=== PATIENT | male | born 1930 | race Caucasian/White ===

== ENCOUNTER 2016-12-22 05:41 | Inpatient (IN) | payer OTHER ==
[2016-12-21 10:57] LABS: % IMMATURE GRANULYOCYTES 0.6 % (0.0-1.1); ABSOLUTE IMMATURE GRANULOCYTES 0.04 10^3/uL (0.00-0.10); ADD DIFF? NO; ADD MORPH? NO; ADD SCAN? NO; ATYPICAL LYMPHOCYTE FLAG 0 (0-99); FRAGMENT RBC FLAG 0 (0-99); HEMOGLOBIN 13.5 g/dL (13.7-17.5); LEFT SHIFT FLG 0 (0-99); LIPEMIA HEMOLYSIS FLAG 80 (0-99); MEAN CELL HEMOGLOBIN 31.6 pg (27.9-34.1); MEAN CELL HEMOGLOBIN CONCENTR. 32.9 g/dL (32.4-36.7); MEAN PLATELET VOLUME 10.5 fL (8.7-11.7); PLATELET CLUMPS FLAG 10 (0-99); PLATELET COUNT 215 10^3/uL (150-400); RED BLOOD CELL COUNT 4.27 10^6/uL (4.40-6.38); RED CELL DISTRIBUTION WIDTH 13.7 % (11.5-15.2)
--- NOTE | 2016-12-21 13:55 | CPEKG ---
Heart Rate: 67 RR Interval: 896 P-R Interval: 232 QRSD Interval: 138 QT Interval: 456 QTC Interval: 482 P Royston: 93 QRS Royston: 12 T Wave Royston: 22 EKG Severity - ABNORMAL ECG - EKG Impression: SINUS RHYTHM EKG Impression: FIRST DEGREE AV BLOCK EKG Impression: RIGHT BUNDLE BRANCH BLOCK Electronically Signed By: Jose C Ochoa 21-Dec-2016 14:21:32
--- NOTE | 2016-12-21 14:36 | GHP ---
[f rep st] PREOP HISTORY AND PHYSICAL DATE OF ADMISSION: 12/22/2016 He will be an a.m. admission for surgery on Thursday, December 22, 2016. 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 HISTORY OF PRESENT ILLNESS: The patient is an 86-year-old man admitted for revision surgery on his left total hip arthroplasty. In 2000, he underwent a left total hip arthroplasty by Dr. Mateo swift at [facility]. He did fine up until about 6 weeks ago. He sustained the first dislo cation sitting on the toilet. This was reduced in the emergency room at [facility]. H emeka dislocated again on November 29, 2016, sitting on a toilet seat. From his description and from e description of how it was reduced in the emergency room, I suspect that this is a posterior disloc ation. He has had a cemented endoprosthesis of the right hip which was done at the [facility] in [place] fo r a femoral neck fracture. He was able to walk without a walker prior to his dislocations. He is admitted at this time for rev ision of the left total hip for recurrent dislocation. PAST MEDICAL HISTORY: He is treated for hypertension, stomach acid, and elevated cholesterol. No h istory of heart disease. His preoperative EKG showed 1st degree heart block and a right bundle bran ch block. No history of DVT, hepatitis, or sleep apnea. CURRENT MEDICATIONS: Ranitidine 150 mg per day, atorvastatin 40 mg per day, metoprolol for blood pr essure, terazosin for urination. DRUG ALLERGIES: Penicillin causes a rash. Metal allergy: None. Latex allergy: None. SOCIAL HISTORY: The patient is single. He does not smoke cigarettes. He occasionally drinks alcoh ol. His primary care doctor is through the [facility]. FAMILY HISTORY: Negative. PHYSICAL EXAMINATION: GENERAL: He is an alert, elderly gentleman. EYES: The conjunctivae and scl erae are clear. Pupils are round and reactive. He has had bilateral cataract surgery with lens imp lants. MOUTH: Good oral hygiene. No loose teeth. CHEST: Clear. HEART: Regular rhythm. No mur murs. EXTREMITIES: He has a healed posterior incision. He is using a Velcro knee splint on the le ft knee to prevent hip flexion. IMPRESSION ON ADMISSION: 1. 16 years status post left total hip arthroplasty with recent onset of dislocation. 2. 7 years status post cemented endoprosthesis of the right hip. 3. Treatment for elevated cholesterol. 4. Treatment for hypertension. 5. Treatment for stomach acid problems. PLAN: He will undergo revision surgery of his left total hip arthroplasty. He has a Jace and Jobspoton and Jace DePuy prosthesis which is uncemented on the acetabulum and femur. This is possibl y a pkvec-qf-gqwuj bearing surface. He is long on the left, primarily because he has significant sh ortening from the endoprosthesis on the right hip. I am going to do a headliner exchange on his lef t hip. I am probably going to add a little bit of length and add a lipped liner or a face-changing liner. The overall position of his acetabular component is good. The surgery has been described to the patient and to his son including the risks, complications, exp ectations, and recovery time. All his questions have been answered, and he consents to surgery. I have advised them both that there is an increased risk of dislocation following revision surgery on a total hip. He plans on going to [facility] for rehab following discharge from the hospital. Those arrang ements have already been made. /[id number]/MODL
[2016-12-22] MEDS ORDERED: LIDOCAINE 1% 2 ML INJ ONE (06:19)
[2016-12-22] MEDS ORDERED: TRANEXAMIC ACID 1,900 MG in NS 100 ML IV ONE (06:30)
[2016-12-22] MEDS ORDERED: FAMOTIDINE 20 MG TAB PO ONE (06:30)
[2016-12-22] MEDS ORDERED: CEFAZOLIN 2 GM/DEXTR 100 ML IV ONE (06:30)
[2016-12-22] MEDS ORDERED: ROPI/epiNEPH/KETOROLAC JOINT COCKTAIL IU ONE (06:30)
[2016-12-22] MEDS ORDERED: DEXAMETHASONE 4 MG/ML VIAL IVP ONE (06:30)
[2016-12-22] MEDS ORDERED: CHLORHEXIDINE GLUC HIBICLENS 118 ML BTL TP ONE (06:30)
[2016-12-22] MEDS ORDERED: SKIN ADHESIVE (DERMABOND) 1 EACH TP ONE (06:38)
[2016-12-22] MEDS ORDERED: ceFAZolin 1 GM/5 ML SYR ONE (06:39)
[2016-12-22] MEDS ORDERED: ACETAMINOPHEN 325 MG TAB PO ONE (07:00)
[2016-12-22] MEDS ORDERED: POVIDONE-IODINE 20 ML in SODIUM CL IRRIG SOLUTION 500 ML IRR ONE (07:00)
[2016-12-22] MEDS ORDERED: PROPOFOL 200 MG/20 ML VIAL ONE ×2 (07:02)
[2016-12-22] MEDS ORDERED: fentaNYL 100 MCG/2 ML INJ ONE ×3 (07:03→09:26)
[2016-12-22] MEDS ORDERED: ROCURONIUM 100 MG/10 ML VIAL ONE (07:06)
[2016-12-22] MEDS ORDERED: LIDOCAINE 2% 100 MG/5 ML SYR ONE (07:06)
[2016-12-22] MEDS ORDERED: LR 1,000 ML IV ONE (07:14)
[2016-12-22] MEDS ORDERED: LIDOCAINE 1% 5 ML SDV ID PRN (07:14)
[2016-12-22] MEDS ORDERED: ONDANSETRON 4 MG/2 ML VIAL ONE ×2 (07:52→09:31)
[2016-12-22] MEDS ORDERED: DEXAMETHASONE 4 MG/ML VIAL ONE (07:52)
[2016-12-22] MEDS ORDERED: SUGAMMADEX SODIUM 200 MG/2 ML VIAL IVP ONE (08:36)
[2016-12-22] MEDS ORDERED: KETOROLAC 30 MG/1 ML SDV ONE (08:46)
[2016-12-22] MEDS ORDERED: MAGNESIUM HYDROXIDE 30 ML UDCUP PO PRN (09:08)
[2016-12-22] MEDS ORDERED: LACTULOSE 20 GM/30 ML UDCUP PO PRN (09:08)
[2016-12-22] MEDS ORDERED: diphenhydrAMINE 25 MG CAP PO PRN (09:08)
[2016-12-22] MEDS ORDERED: oxyCODONE IR 5 MG TAB PO PRN (09:08)
[2016-12-22] MEDS ORDERED: NS 500 ML IV PRN (09:08)
[2016-12-22] MEDS ORDERED: POLYETHYLENE GLYCOL 3350 17 GM PKT PO PRN (09:08)
[2016-12-22] MEDS ORDERED: KETOROLAC 30 MG/1 ML SDV IVP PRN (09:08)
[2016-12-22] MEDS ORDERED: ONDANSETRON 4 MG/2 ML VIAL IVP PRN (09:08)
[2016-12-22] MEDS ORDERED: TEMAZEPAM 15 MG CAP PO PRN (09:08)
[2016-12-22] MEDS ORDERED: ONDANSETRON DISINTEGRATING 4 MG TAB PO PRN (09:08)
[2016-12-22] MEDS ORDERED: traMADol 50 MG TAB PO PRN (09:08)
[2016-12-22] MEDS ORDERED: PROMETHAZINE HCL 25 MG SUPPR PR PRN (09:08)
[2016-12-22] MEDS ORDERED: PHARMACY PAIN CONSULT 1 EA MISC PRN (09:08)
[2016-12-22] MEDS ORDERED: CYCLOBENZAPRINE 10 MG TAB PO PRN (09:08)
[2016-12-22] MEDS ORDERED: DIPHENOXYLATE/ATROPINE LOMOTIL 1 TAB PO PRN (09:08)
[2016-12-22] MEDS ORDERED: BISACODYL 10 MG SUPP PR PRN (09:08)
[2016-12-22] MEDS ORDERED: METOCLOPRAMIDE 10 MG/2 ML VIAL IVP PRN (09:08)
--- NOTE | 2016-12-22 09:20 | POSTOPPROG ---
Post Op Note Date of Operation: 12/22/16 Surgeon: Cholo Bai Shirring Machine Operator Automatic: Osmani/Fab Anesthesiologist: July Anesthesia: GET(General Endotracheal) Post-op Diagnosis: recurrent dislocation left FRANCIA Procedure: head and liner exchange revision Inf/Abcess present in the surg proc area at time of surgery?: No EBL: [id number]
[2016-12-22] MEDS ORDERED: PROMETHAZINE HCL 25 MG/ML INJ ONE (09:43)
--- NOTE | 2016-12-22 09:48 | GOP ---
[f rep st] OPERATIVE REPORT DATE OF OPERATION: 12/22/2016 SURGEON: Cholo Bai MD SEAT COVERER: 1. Pravin Keen, PAC. 2. David Sanon COLOR CONSULTANT. ANESTHESIA: General anesthesia. ANESTHESIOLOGIST: Kev Mcdowell MD. PREOPERATIVE DIAGNOSIS: 16 years status post left total hip arthroplasty with recent onset of recur rent instability. POSTOPERATIVE DIAGNOSIS: 16 years status post left total hip arthroplasty with recent onset of recu rrent instability. PROCEDURE PERFORMED: Revision of left total hip arthroplasty with head and liner exchange. FINDINGS: DESCRIPTION OF PROCEDURE: The patient was given 2 g of IV Ancef within 60 minutes of surgery. He a lso was given IV tranexamic acid at a dose of 20 mg/kg. He was placed on the operating room table a nd given general anesthesia by Dr. Mcdowell. A Mccann catheter was not used. A ABDIFATAH stocking and SCD we re applied to the nonoperative leg. He was rolled to the right lateral decubitus position. The pos ition was secured with the pegboard table attachment. An axillary roll was used, and all pressure p oints were carefully padded. I was careful to lock his pelvis in a vertical position. His hip demo nstrated significant instability. It dislocated several times while we were positioning him. This appeared to be a posterior dislocation. His perineum was isolated with plastic adhesive drapes. Th e left hip and left lower extremity were prepped with ChloraPrep. They were draped free using steri le sheets, stockinette, and Ioban plastic adhesive drapes. The [employer] time-out was performed to verify the correct surgical side and the cor rect patient identity. The [place] time-out was also performed. I re-opened his original posterolateral skin incision. I incorporated about 7 inches of the origina l incision. This was a curved incision. Subcutaneous tissues were sharply divided, and hemostasis was obtained using electrocautery. His scarred fascia was identified and split along the axis of it s fibers. The subfascial tissues were ballotable. Once I entered deep to the fascia danay, there wa s a spontaneous drainage of between 100 and 200 cc of turbid, tannish-yellow fluid. A culture was o btained. I split the scarred gluteus estefany muscle fibers in line with their orientation. The Debbie bernstein self-retaining retractor was inserted. 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 The tip of his greater trochanter was largely bare. It looked like th ere might be some remaining abductors in the anterior 25%. I used a rongeur to remove a lot of the necrotic caseous-appearing material. This material was sent for aerobic and anaerobic cultures, and also sent for histologic examination. I did as thorough a debridement of this necrotic tissue as p ossible. I had to be cautious posteriorly in the area of his sciatic nerve. The anatomy was altere d by scarring and necrotic tissue. I could see a nonabsorbable FiberWire type suture in the trochan ter, which had previously been used to repair the external rotators. This was removed. There was n o layer of external rotators. The hip was dislocated posteriorly. He had a klurp-yj-hhewk bearing surface. This was a DePuy/Radiojar and Jace prosthesis. I used a bone tamp and a mallet to tap off the femoral head from the tr unnion. There was a moderate amount of corrosion of the upnm-puaa-jyxhzasr. The trunnion was clean ed. The femoral component felt stable. I then excised additional capsule and necrotic tissue circumferentially around the acetabulum, so th at I could visualize the whole acetabulum. Appropriate retractors were inserted to hold the proxima l femur anteriorly. I used a bone tamp and tapped sequentially on the rim of the acetabular compone nt until I loosened the metal liner. This was then pried out with the [place] and removed. There was a moderate amount of corrosion between the liner and the acetabular shell, particularly superiorly. The previous surgery did not include a dome hole plug. I cleaned out the dome hole opening, and i nserted a dome hole plug. I made sure the entire circumference of the acetabular component was radha manny. Because of the absence of his abductors, I chose to use a constrained liner. I selected the DePuy c onstrained liner with a 10-degree face changing, and a +4 mm lateralizing. This was for a 54 mm met al shell and a 32 mm head. The liner was inserted and tapped securely into place. I dialed the 10- degree face changing so that it was posterior. I then selected a 32 mm Biolox Delta ceramic head wi th a titanium sleeve. This had a 12/14 taper. It was a +9 mm neck length. This was tapped securel y onto the clean trunnion. The metal retaining ring was placed over the neck of the femoral component. The head was reduced an d locked into the locked liner. I then applied the locking ring around the periphery of the plastic liner and tapped it securely into place. The hip was taken through a range of motion, and it was s table. The constrained liner also felt stable. The wound was thoroughly irrigated. I did some additional debridement of the necrotic, damaged soft tissues. The hip was thoroughly irrigated with a dilute Betadine solution. There was no posterior capsule or external rotators to repair. A drain was not used. There was min imal bleeding. His fascia danay was closed first with a couple of interrupted glhwhz-rt-xkbtq #2 FiberWire sutures f ollowed by a running #2 barbed Ethicon Stratafix PDO suture. The subcutaneous tissues were closed w ith a running 0 barbed Ethicon Stratafix Monoderm suture. The skin was closed with a running 3-0 ba rbed Ethicon Stratafix Monoderm subcuticular suture. The skin edges were reapproximated and sealed with Dermabond glue. The wound was covered with a strip of Telfa, and everything was held in place with a piece of clear plastic Tegaderm. A long-leg ABDIFATAH stocking and SCD were applied to his left lower extremity. He wore a stocking and SC D on the opposite leg during the procedure. An abduction pillow was placed between his knees. He w as awakened from anesthesia and rolled to the supine position on his [employer]. He was taken to PACU in satisfactory condition. There were no recognized intraoperative complications. The jarrell mated blood loss was about 200 mL. The sponge and needle counts were correct on 2 occasions. I used a Jace and Jace/DePuy polyethylene constrained liner with a 10-degree face changing, an d 4-degree lateralizing. It had an outside diameter of 54 mm, an inside diameter of 32 mm. The fem oral head was a 32 mm Biolox Delta ceramic head with a titanium sleeve and a +9 mm neck length. Cy Keen and David Sanon acted as surgical assistants. Their assistance was a medical [facility] jaye. /[id number]/MODL
[2016-12-22] MEDS: LR 1,000 ML IV SCH ×2 (11:40→20:40)
[2016-12-22] MEDS: ACETAMINOPHEN 325 MG TAB PO SCH ×3 (12:34→22:52)
[2016-12-22] MEDS: TRANEXAMIC ACID 650 MG TAB PO SCH ×3 (13:29→20:41)
[2016-12-22] MEDS: ceFAZolin 2 GM/DEXTROSE 100 ML IV SCH ×2 (13:29→20:41)
[2016-12-22] MEDS: TERAZOSIN HCL 2 MG CAP PO SCH (20:41)
[2016-12-22] MEDS: FAMOTIDINE 20 MG TAB PO SCH (20:41)
[2016-12-22] MEDS: SENNOSIDES/DOCUSATE SODIUM TAB PO SCH (20:41)
[2016-12-22] MEDS: ASPIRIN 325 MG TAB PO SCH (20:41)
[2016-12-22] MEDS: METOPROLOL TARTRATE 50 MG TAB PO SCH (20:53)
[2016-12-23 05:12] LABS: HEMATOCRIT 35.6 % (40.0-51.0); HEMOGLOBIN 12.2 g/dL (13.7-17.5)
[2016-12-23] MEDS: ACETAMINOPHEN 325 MG TAB PO SCH ×2 (05:27→12:06)
[2016-12-23 08:59] VITALS: TEMP 97.1
[2016-12-23] MEDS ORDERED: ATORVASTATIN CALCIUM 40 MG TAB PO SCH (09:00)
[2016-12-23] MEDS ORDERED: FERROUS SULFATE 140 MG TAB.ER PO SCH (09:00)
[2016-12-23] MEDS ORDERED: VANICREAM CREAM TP SCH (09:00)
[2016-12-23] MEDS: FAMOTIDINE 20 MG TAB PO SCH (09:31)
[2016-12-23] MEDS: TRANEXAMIC ACID 650 MG TAB PO SCH (09:31)
[2016-12-23] MEDS: ASPIRIN 325 MG TAB PO SCH (09:31)
[2016-12-23] MEDS: SENNOSIDES/DOCUSATE SODIUM TAB PO SCH (09:32)
[2016-12-23] MEDS: TERAZOSIN HCL 2 MG CAP PO SCH (09:32)
[2016-12-23] MEDS: METOPROLOL TARTRATE 50 MG TAB PO SCH (09:33)
--- NOTE | 2016-12-23 09:36 | PDIAF ---
- Diagnosis Diagnosis: failed left FRANCIA with revision of head and liner Code Status: Full Code - Medication Management Discharge Medications: Medications to Continue on Transfer Acet. 325mg/Diphenhydramine 12.5mg 1 tab PO HS 12/21/16 [Last Taken Unknown] Atorvastatin Calcium [Lipitor 40 mg (*)] 40 mg PO DAILY 12/21/16 [Last Taken ] Metoprolol Tartrate [Lopressor 50 mg (*)] 75 mg PO BID 12/21/16 [Last Taken 04:30] Ranitidine HCl 150 mg PO BID 12/21/16 [Last Taken 12/22/16 04:30] Terazosin HCl [Hytrin 2 MG (*)] 2 mg PO BID 12/21/16 [Last Taken 12/22/16 04:30] Vanicream [Vanicream (*)] 1 sd TP DAILY 12/21/16 [Last Taken 12/21/16] Flunisolide Nasal [Nasarel Nasal [place]] 1 sprays NS DAILY PRN 12/22/16 [Last Taken 12/22/16 04:30] Loratadine [Claritin] 10 mg PO DAILY PRN 12/22/16 [Last Taken 12/22/16 04:30] diphenhydrAMINE [Benadryl 25 MG (*)] 25 mg PO HS PRN 12/22/16 [Last Taken ] Acetaminophen [Tylenol 325mg (*)] 650 mg PO Q6HRS #0 tab 12/23/16 [Last Taken Unknown] Aspirin [Aspirin 325 mg (*)] 325 mg PO DAILY #21 tab 12/23/16 [Last Taken Unknown] Ferrous Sulfate [Slow Fe 140 MG (*)] 140 mg PO DAILY #30 tab.er 12/23/16 [Last Taken Unknown] Ondansetron Odt [Zofran Odt 4 mg (*)] 4 mg PO Q4HRS PRN #0 tab 12/23/16 [Last Taken Unknown] oxyCODONE IR [Oxycodone Ir (*)] 5 - 10 mg PO Q3HRS PRN #0 tab 12/23/16 [Last Taken Unknown] traMADol [Ultram 50 mg (*)] 50 mg PO Q6HRS PRN #0 tab 12/23/16 [Last Taken Unknown] Discharge Medications: Refer to the Discharge Home Medication list for PRN reason. - Orders Services needed: Physical Therapy, Occupational Therapy Diet Recommendation: no restrictions on diet Diet Texture: Regular Texture Diet Grady Stockings Discontinue Date: 1 week Wound Care Instructions: keep clean and dry. You may shower. Activity/Weight Bearing Restrictions: as tolerated. Avoid flexion past 90 degrees of the left hip x 3 weeks. - Follow Up Care Current Providers and Referrals: [facility]EMENDE[employer],ASSOC[employer] [Other] Cholo Bai MD [Medical Doctor] - 01/14/17 1:30 pm
--- NOTE | 2016-12-23 09:36 | SOAPPROG ---
SOAP Progress Note Assessment/Plan: Assessment: Awake and alert. He was a little confused last night. Walking in room. Dsg is dry. H/H is good. Films look good. Gram stain negative. Plan: PT today. Transfer to [facility] later today. 12/23/16 09:34 Objective: Vital Signs Temp Pulse Resp BP Pulse Ox 36.2 C 80 18 151/62 H 95 12/23/16 08:56 12/23/16 08:56 12/23/16 08:56 12/23/16 08:56 12/23/16 08:56 Microbiology 12/22/16 07:50 Mycobacterial Smear (PHUONG) - Final Hip - Tissue 12/22/16 07:50 Gram Stain - Final Hip - Tissue 12/22/16 07:50 Gram Stain - Final Hip - Eswab 12/22/16 07:50 Gram Stain - Final Hip - Eswab Laboratory Results 12/23/16 04:46 12/22/16 12/23/16 12/24/16 05:59 05:59 05:59 Intake Total 2645 Output Total 500 Balance 2145 ICD10 Worksheet Patient Problems: Problems Problem Status Onset Failed total hip arthroplasty with dislocation Acute
--- NOTE | 2016-12-23 09:56 | GDS ---
[f rep st] DISCHARGE SUMMARY PREOPERATIVE DIAGNOSIS: Status post left total hip arthroplasty with recurrent dislocation. DISCHARGE DIAGNOSIS: Status post left total hip arthroplasty with recurrent dislocation. OPERATION PERFORMED: On 12/22/2016, left hip debridement and head and liner exchange revision. POSTOPERATIVE COMPLICATIONS: None. CONDITION ON DISCHARGE: Improved. DESCRIPTION OF HOSPITAL COURSE: The patient was admitted to the hospital the morning of surgery. A dmission hemoglobin and hematocrit were 13.5 and 41.0. The same day under general anesthesia he und erwent revision surgery of his left total hip arthroplasty with extensive debridement for soft tissu e damage as well as a head and liner exchange. I inserted a constrained acetabular component. Post operatively he was treated with multimodal DVT prophylaxis including aspirin. On the 1st postoperat yvonne day, his hemoglobin and hematocrit were 12.2 and 35.6. He did not require any transfused blood. He was seen by Physical Therapy and made satisfactory progress with ambulation. By the time of di scharanibal, he was afebrile, alert, his wound was clean and dry, and he was walking independently with a walker. DISPOSITION: The patient transferred to [facility]. He will use an abduction pi llow in bed for 3 weeks. Continue aspirin 325 mg p.o. daily for 21 days. Use ABDIFATAH stockings for 1 w elem. I will see him back in the office on December 14, 2016. If there are any problems, he is to call me at the office. Copy requested to: [facility] /[id number]/MODL
[2016-12-23 12:21] VITALS: RESP 16
[2016-12-23 12:59] VITALS: BP 98/50; PULSE 68; O2SAT 94
== END 2016-12-23 13:48 | DRG 468 ==
LOC: F3N 05:41
PROVIDERS: ADMIT Orthopaedic Surgery; ATTEND Orthopaedic Surgery
PROC: 0SPS0JZ Removal of Synthetic Substitute from Left Hip Joint, Femoral Surface, Open Approach (ICD-10-PCS; principal; 2016-12-22 07:15)
PROC: 0SUE09Z Supplement Left Hip Joint, Acetabular Surface with Liner, Open Approach (ICD-10-PCS; principal; 2016-12-22 07:15)
PROC: 0SPB09Z Removal of Liner from Left Hip Joint, Open Approach (ICD-10-PCS; principal; 2016-12-22 07:15)
PROC: 0SRB0JZ Replacement of Left Hip Joint with Synthetic Substitute, Open Approach (ICD-10-PCS; principal; 2016-12-22 07:15)
DX: T84.021A Dislocation of internal left hip prosthesis, initial encounter (principal); Z96.641 Presence of right artificial hip joint; E78.00 Pure hypercholesterolemia, unspecified; I10 Essential (primary) hypertension; K30 Functional dyspepsia
CPT/HCPCS: 97110-GP; 97116-GP; 97161-GP; 97165-GO; G8978-GP-CK; G8979-GP-CJ; G8987-GO-CJ; G8988-GO-CI; G8989-GO-CJ; J0171; J0690; J1100; J1885; J2001; J2405; J2550; J2704; J2795; J3010